=== PATIENT | female | born 1935 | race Caucasian/White ===

== ENCOUNTER 2017-05-26 18:23 | Inpatient (IN) ==
[2017-05-26] MEDS ORDERED: ACETAMINOPHEN 325 MG/10.15 ML UDCUP PO STA (19:09)
[2017-05-26] MEDS ORDERED: ACETAMINOPHEN 325 MG/10.15 ML UDCUP ONE (19:36)
[2017-05-26 19:40] LABS: Basophils # 0.1 10*3/uL (0.0-0.2); Basophils % 0.8 % (0.0-0.8); Eosinophils # 0.1 10*3/uL (0.0-0.87); Eosinophils % 1.5 % (0.00-10.9); Hematocrit 30.6 VOL% (35.7-47.0); Hemoglobin 10.7 GM/DL (12.0-16.0); Immature Granulocytes % 0.3 %; Immature Granulocytes Absolute 0.02 #; Lymphocytes # 2.3 10*3/uL (1.4-4.0); Lymphocytes % 34.8 % (21.3-54.2); Mean Corpuscular Hemoglobin 32 PG (27-34); Mean Corpuscular Volume 91.1 FL (87-102); Mean Platelet Volume 11.6 FL (9.6-12.0); Monocytes # 0.5 10*3/uL (0.11-0.8); Monocytes % 7.7 % (1.7-12.7); Neutrophils # 3.6 10*3/uL (1.4-7.4); Neutrophils % 54.9 % (38.7-73.9); Platelet Count 160 T/CUMM (130-400); Red Blood Count 3.36 MC/CUMM (3.8-5.5); White Blood Count 6.5 T/CUMM (4-12)
[2017-05-26 19:55] LABS: Apearance,Urine CLEAR (Clear); Bilirubin,Urine Negative (Negative); Blood, Urine Negative (Negative); Glucose,Urine (UA) Negative (Negative); Ketones,Urine Negative (Negative); Nitrite,Urine Negative (Negative); Protein,Urine Negative; RBC,Urine <1 /HPF (0-4); Squamous Epithelial Cell,Urine Occasional /HPF (0-10); Urine Color Straw (Yellow); Urine Specific Gravity 1.006 (1.001-1.035); Urine Urobilinogen < 2.0 EU/DL (0.2-1.0); WBC,Urine <1 /HPF (0-6)
[2017-05-26 20:03] LABS: Alanine Aminotransferase 22 U/L (13-56); Albumin 3.8 G/DL (3.4-5.0); Alkaline Phosphatase 50 U/L (45-117); Aspartate Amino Transferase 28 U/L (0-37); Bilirubin,Total < 0.39 MG/DL (0.2-1.0); Blood Urea Nitrogen 22 MG/DL (7-18); Calcium 9.7 MG/DL (8.5-10.1); Glucose 118 MG/DL (74-106); Osmolality,Calculated 284.3 MOS/KG (273-304); Potassium 3.6 MMOL/L (3.5-5.1); Sodium 141 MMOL/L (136-145); Total Protein 6.9 G/DL (6.4-8.3)
[2017-05-26] MEDS ORDERED: ACETAMINOPHEN 325 MG TABLET PO PRN (20:08)
[2017-05-26] MEDS ORDERED: traMADol 50 MG TABLET PO PRN (20:08)
[2017-05-26] MEDS ORDERED: ONDANSETRON 4 MG/2 ML VIAL IV PRN (20:08)
[2017-05-26] MEDS: DOCUSATE SODIUM 100 MG CAPSULE PO SCH (23:10)
[2017-05-27] MEDS: DEXTROSE 5% NACL 0.45% 1,000 ML IV SCH ×3 (00:20→17:29)
[2017-05-27] MEDS: LACTATED RINGERS 1,000 ML IV SCH ×2 (08:20→12:23)
[2017-05-27] MEDS: DOCUSATE SODIUM 100 MG CAPSULE PO SCH ×2 (09:34→20:07)
[2017-05-27] MEDS: PANTOPRAZOLE 40 MG TABLET PO SCH (09:34)
[2017-05-27] MEDS ORDERED: SEVOFLURANE 1 UNIT/15 MINUTE INH ONE (10:22)
[2017-05-27] MEDS ORDERED: ETOMIDATE 40 MG/20 ML VIAL IV ONE (10:22)
[2017-05-27] MEDS ORDERED: ONDANSETRON 4 MG/2 ML VIAL ONE (10:22)
[2017-05-27] MEDS ORDERED: hydrALAZINE 20 MG/1 ML VIAL ONE (10:22)
[2017-05-27] MEDS ORDERED: fentaNYL 100 MCG/2 ML VIAL ONE (10:22)
[2017-05-27] MEDS ORDERED: ONDANSETRON 4 MG/2 ML VIAL IV PRN (10:59)
[2017-05-27] MEDS ORDERED: HYDROmorphone 2 MG/1 ML VIAL IV PRN (10:59)
[2017-05-27] MEDS ORDERED: MORPHINE 10 MG/1 ML VIAL IV PRN (10:59)
[2017-05-27] MEDS ORDERED: HYDROmorphone 2 MG/1 ML VIAL ONE (11:00)
[2017-05-27] MEDS ORDERED: cloNIDine 0.1 MG TABLET PO PRN (13:40)
[2017-05-27] MEDS: MORPHINE 4 MG/1 ML VIAL IV PRN (16:10)
[2017-05-27] MEDS ORDERED: HALOPERIDOL 5 MG/ML AMP IV ONE (21:31)
[2017-05-28] MEDS: MORPHINE 4 MG/1 ML VIAL IV PRN ×2 (05:02→21:52)
[2017-05-28] MEDS: DEXTROSE 5% NACL 0.45% 1,000 ML IV SCH ×2 (05:06→16:53)
[2017-05-28] MEDS: DOCUSATE SODIUM 100 MG CAPSULE PO SCH ×2 (08:30→21:49)
[2017-05-28] MEDS: PANTOPRAZOLE 40 MG TABLET PO SCH (08:30)
[2017-05-28] MEDS: GEMFIBROZIL 600 MG TABLET PO SCH (16:53)
[2017-05-28] MEDS ORDERED: DONEPEZIL 10 MG TABLET PO SCH (21:00)
[2017-05-28] MEDS ORDERED: CITALOPRAM 20 MG TABLET PO SCH (21:00)
[2017-05-28] MEDS ORDERED: TERAZOSIN 5 MG CAPSULE PO SCH (21:00)
[2017-05-28] MEDS ORDERED: GABAPENTIN 100 MG CAPSULE PO SCH (21:00)
[2017-05-28] MEDS ORDERED: CLOPIDOGREL 75 MG TABLET PO SCH (21:00)
[2017-05-28] MEDS: busPIRone 5 MG TABLET PO SCH (21:49)
[2017-05-28] MEDS: MAGNESIUM OXIDE 400 MG TABLET PO SCH (21:49)
[2017-05-28] MEDS: FERROUS SULFATE 325 MG TABLET PO SCH (21:49)
[2017-05-28] MEDS: CALCIUM (CARBONATE)/VITAMIN D 600 MG-400 UNIT TABLET PO SCH (21:49)
[2017-05-28] MEDS: VENLAFAXINE 100 MG TABLET PO SCH (21:52)
[2017-05-29] MEDS: DEXTROSE 5% NACL 0.45% 1,000 ML IV SCH (03:15)
[2017-05-29 04:32] LABS: Basophils % 0.3 % (0.0-0.8); Eosinophils # 0.1 10*3/uL (0.0-0.87); Eosinophils % 1.1 % (0.00-10.9); Hematocrit 26.3 VOL% (35.7-47.0); Immature Granulocytes % 0.3 %; Immature Granulocytes Absolute 0.02 #; Lymphocytes # 1.1 10*3/uL (1.4-4.0); Lymphocytes % 17.5 % (21.3-54.2); Mean Corpuscular HGB Conc 34.2 GM/DL (32-36); Mean Corpuscular Hemoglobin 32 PG (27-34); Mean Corpuscular Volume 92.6 FL (87-102); Mean Platelet Volume 11.8 FL (9.6-12.0); Monocytes # 0.4 10*3/uL (0.11-0.8); Monocytes % 6.8 % (1.7-12.7); Neutrophils # 4.6 10*3/uL (1.4-7.4); Platelet Count 108 T/CUMM (130-400); Red Blood Count 2.84 MC/CUMM (3.8-5.5); Red Cell Distribution Width 12.3 % (9.3-17.3); White Blood Count 6.2 T/CUMM (4-12)
[2017-05-29 05:37] LABS: Calcium 7.1 MG/DL (8.5-10.1); Osmolality,Calculated 285.4 MOS/KG (273-304); Potassium 3.7 MMOL/L (3.5-5.1)
[2017-05-29] MEDS ORDERED: DOCUSATE SODIUM 100 MG CAPSULE PO SCH (07:30)
[2017-05-29] MEDS ORDERED: POTASSIUM CHLORIDE 8 MEQ CAPSULE PO SCH (07:30)
[2017-05-29] MEDS ORDERED: NON-FORMULARY MEDICATION (Esomeprazole Magnesium [Nexium] 40 MG) PO SCH (09:00)
[2017-05-29] MEDS ORDERED: MULTIVITAMIN (CENTRUM) TABLET PO SCH (09:00)
[2017-05-29] MEDS ORDERED: VITAMIN E 400 UNIT CAPSULE PO SCH (09:00)
[2017-05-29] MEDS ORDERED: CYANOCOBALAMIN 500 MCG TABLET PO SCH (09:00)
[2017-05-29] MEDS ORDERED: CHOLECALCIFEROL 400 UNIT TABLET PO SCH (09:00)
[2017-05-29] MEDS ORDERED: SOLIFENACIN 5 MG TABLET PO SCH (09:00)
[2017-05-29] MEDS ORDERED: PYRIDOXINE 100 MG TABLET PO SCH (09:00)
[2017-05-29] MEDS: MAGNESIUM OXIDE 400 MG TABLET PO SCH (11:01)
[2017-05-29] MEDS: GEMFIBROZIL 600 MG TABLET PO SCH (11:01)
[2017-05-29] MEDS: DOCUSATE SODIUM 100 MG CAPSULE PO SCH (11:03)
[2017-05-29] MEDS: VENLAFAXINE 100 MG TABLET PO SCH (11:03)
[2017-05-29] MEDS: FERROUS SULFATE 325 MG TABLET PO SCH (11:04)
[2017-05-29] MEDS: PANTOPRAZOLE 40 MG TABLET PO SCH (11:05)
[2017-05-29] MEDS: busPIRone 5 MG TABLET PO SCH (11:05)
[2017-05-29] MEDS: CALCIUM (CARBONATE)/VITAMIN D 600 MG-400 UNIT TABLET PO SCH (11:07)
[2017-05-29 11:22] VITALS: BP 172/49
== END 2017-05-29 12:51 | disposition home health service (06) | DRG 511 ==
LOC: EDUNIT# → EDBD → N.ED 18:23 → N.EDINP 18:23 → N.3E 20:48
PROVIDERS: ADMIT Internal Medicine; ATTEND Internal Medicine